=== PATIENT | female | born 1960 | race African-American/Black ===

== ENCOUNTER 2016-12-30 09:21 | Emergency (ER) | payer OTHER, MEDICARE ==
[~2016-12-30] VITALS: Ht 158.8 cm; Wt 99.8 kg
[2016-12-30] MEDS ORDERED: IBUPROFEN 600 MG TABLET. PO ONE (09:45)
[2016-12-30] MEDS ORDERED: oxyCODONE/APAP 5/325 1 TAB TABLET PO ONE (09:45)
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
[2016-12-30] MEDS ORDERED: HYDR-971 PO (10:50)
[2016-12-30] MEDS ORDERED: DIAZ5TAB PO (10:50)
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
[2016-12-30 11:01] VITALS: BP 176/75
== END 2016-12-30 11:03 | disposition home or self-care (01) ==
LOC: ER 09:21
DX: S16.1XXA Strain of muscle, fascia and tendon at neck level, initial encounter (principal); S09.90XA Unspecified injury of head, initial encounter; I10 Essential (primary) hypertension; G89.29 Other chronic pain; Z88.2 Allergy status to sulfonamides; Z88.1 Allergy status to other antibiotic agents; Z88.8 Allergy status to other drugs, medicaments and biological substances; S40.212A Abrasion of left shoulder, initial encounter; S50.812A Abrasion of left forearm, initial encounter; V49.49XA Driver injured in collision with other motor vehicles in traffic accident, initial encounter; Y93.89 Activity, other specified; Y99.8 Other external cause status; Y92.488 Other paved roadways as the place of occurrence of the external cause
CPT/HCPCS: 70450; 72125; 73130; 99284-25